=== PATIENT | male | born 1980 | race Caucasian/White ===

== ENCOUNTER 2019-02-17 15:56 | Emergency (ER) | payer SELFPAY ==
[2019-02-17] MEDS ORDERED: LORazepam 2 MG/ML SDV IM ONE (15:57)
[2019-02-17] MEDS ORDERED: Ketorolac 60 MG/2 ML SDV IM ONE (15:57)
[2019-02-17] MEDS ORDERED: Cyclobenzaprine 10 MG Tab PO ONE (16:27)
--- NOTE | 2019-02-17 16:29 | EDM.PDOC ---
ED HPI GENERAL MEDICAL PROBLEM - General Chief Complaint: Back Pain or Injury Stated Complaint: HURT BACK Time Seen by Provider: 02/17/19 16:24 Source of Information: Reports: Patient, Family, RN Notes Reviewed History Limitations: Reports: No Limitations - History of Present Illness INITIAL COMMENTS - FREE TEXT/NARRATIVE: 39-year-old gentleman presents emergency department day complaint of low back pain, he states he injured himself last week with a twisting injury he had a similar event today where he was going down the stairs with his cane missed a step all his weight, fell onto the cane he was able to catch himself but sudden onset of low back pain right might be greater than left no loss of bowel or bladder Lower Back Pain Score (Numeric/FACES): 10 - Related Data Allergies Allergy/AdvReac Type Severity Reaction Status Date / Time No Known Allergies Allergy Verified 02/17/19 16:01 Home Meds: Home Meds Cyclobenzaprine [Flexeril] 10 mg PO ASDIRECTED 02/17/19 [History] Past Medical History - Past Health History Medical/Surgical History: Denies Medical/Surgical History - Past Surgical History Other Musculoskeletal Surgeries/Procedures:: facial reconstruction. Social & Family History - Tobacco Use Smoking Status *Q: Heavy Tobacco Smoker Years of Tobacco use: 15 Packs/Tins Daily: 1 - Caffeine Use Caffeine Use: Reports: Coffee, Soda - Recreational Drug Use Recreational Drug Type: Reports: Marijuana/Hashish, Methamphetamine ED ROS GENERAL - Review of Systems Review Of Systems: See Below Constitutional: Reports: No Symptoms Respiratory: Reports: No Symptoms Cardiovascular: Reports: No Symptoms GI/Abdominal: Reports: No Symptoms : Reports: No Symptoms Musculoskeletal: Reports: Back Pain Neurological: Reports: No Symptoms ED EXAM,LOWER BACK PAIN/INJURY - Physical Exam Exam: See Below Exam Limited By: No Limitations General Appearance: Alert, Moderate Distress Respiratory/Chest: No Respiratory Distress Back Exam: Normal Inspection, Decreased Range of Motion, Muscle Spasm, Paraspinal Tenderness. No: CVA Tenderness (R), CVA Tenderness (L), Vertebral Tenderness Course - Vital Signs Last Recorded V/S: Last Vital Signs Temp 98.6 F 02/17/19 16:02 Pulse 93 02/17/19 16:02 Resp 20 02/17/19 16:02 BP 122/78 02/17/19 16:02 Pulse Ox 99 04/01/19 16:02 - Orders/Labs/Meds Meds: Medications Discontinued Medications Generic Name Dose Route Start Last Admin Trade Name Zehra MCLAUGHLIN Reason Stop Dose Admin Cyclobenzaprine HCl 10 mg 02/17/19 16:27 02/17/19 16:38 Flexeril PO 02/17/19 16:28 10 mg ONETIME ONE Administration Hydromorphone HCl 1 mg 02/17/19 17:07 02/17/19 17:11 Dilaudid IM 02/17/19 17:08 1 mg ONETIME ONE Administration Ketorolac Tromethamine 60 mg 02/17/19 15:57 02/17/19 16:06 Toradol IM 02/17/19 15:58 60 mg ONETIME ONE Administration Lorazepam 1 mg 02/17/19 15:57 02/17/19 16:09 Ativan IM 02/17/19 15:58 1 mg ONETIME ONE Administration Departure - Departure Time of Disposition: 18:02 Disposition: Home, Self-Care 01 Condition: Fair Clinical Impression: Back pain Qualifiers: Back pain location: low back pain Chronicity: acute Back pain laterality: bilateral Sciatica presence: without sciatica Qualified Code(s): M54.5 - Low back pain - Discharge Information Referrals: PCP,None [Primary Care Provider] - Forms: ED Department Discharge Additional Instructions: Continue with ibuprofen for baseline pain control use hydrocodone for breakthrough pain, use Flexeril as needed for muscle spasms, please follow-up with your primary care provider in the next 3-5 days if no improvement - Assessment/Plan Plan: Assessment Acuity = acute Site and laterality = low back pain Etiology = secondary to twisting injury Manifestations = none Location of injury = Home Lab values = none Plan Good improvement with combination Toradol, Flexeril as well as 1 mg Dilaudid, prescription written for hydrocodone 5/325 one tab by mouth 3 times a day when necessary total #10 as well as Flexeril 10 mg 1 tab by mouth 3 times a day when necessary total #30 follow-up This note was dictated using [employer] recognition software please call with any questions on syntax or grammar.
[2019-02-17] MEDS ORDERED: HYDROmorphone 1 MG/ML Syringe IM ONE (17:07)
== END 2019-02-17 18:06 | disposition home or self-care (01) ==
LOC: JP.ED 15:56
DX: M54.5 Low back pain (principal); F17.210 Nicotine dependence, cigarettes, uncomplicated
CPT/HCPCS: 96372; 99282; A9270; J1170; J1885; J2060